=== PATIENT | female | born 1960 | race Caucasian/White ===

== ENCOUNTER 2020-02-14 20:28 | Emergency (ER) | payer OTHER ==
[2020-02-14] MEDS ORDERED: fentaNYL 100 MCG/2 ML SDV IVPUSH PRN (20:29)
[2020-02-14] MEDS ORDERED: Sodium Chloride 0.9% 1,000 ML IV ONE (20:46)
[2020-02-14] MEDS ORDERED: Acetaminophen/HYDROcodone 325-5 MG Tab ONE (21:00)
[2020-02-14 21:01] VITALS: BP 98/56; PULSE 62
--- NOTE | 2020-02-14 21:02 | EDM.PDOC ---
ED HPI GENERAL MEDICAL PROBLEM - General Chief Complaint: General Stated Complaint: R) shoulder pain Time Seen by Provider: 02/14/20 20:28 Source of Information: Reports: Patient, EMS History Limitations: Reports: No Limitations - History of Present Illness INITIAL COMMENTS - FREE TEXT/NARRATIVE: Deb is a 59 year old female who presents to ER with complaints of right upper arm/shoulder pain. States was leaving the house and slipped on the ice, tried to break her fall with an outstretched arm. Family was planning to bring patient to the ER but due to the pain, did not want to move her. Patient complained of pain at a 11/14 enroute to here. Patient relates she was seen in respiratory clinic on Sunday. Had a negative covid test. Was started on Amoxicillin. While at her appointment, blood pressure was high. Typically on Lisinopril/HCT 20/12.5. Was increased to 20/25. Has not checked her blood pressure at home. Per EMS, blood pressure 90- 110 systolic. Onset: Today, Sudden Duration: Minutes:, Constant Location: Reports: Upper Extremity, Right Quality: Reports: Sharp, Throbbing Severity: Severe Improves with: Reports: Rest Worsens with: Reports: Movement Context: Reports: Trauma Associated Symptoms: Reports: No Other Symptoms Right Upper Shoulder Pain Score (Numeric/FACES): 10 - Related Data Allergies Allergy/AdvReac Type Severity Reaction Status Date / Time No Known Allergies Allergy Verified 02/14/20 20:58 Home Meds: Home Meds Amoxicillin 1 tab PO BID 02/14/20 [History] Hydrochlorothiazide/Lisinopril [Lisinopril/HCTZ 20-12.5 MG] 1 tab PO DAILY 02/14/20 [History] Past Medical History - Past Health History Medical/Surgical History: Denies Medical/Surgical History Social & Family History - Tobacco Use Tobacco Use Status *Q: Current Every Day Tobacco User - Alcohol Use Alcohol Use History: Yes Date/Time of Last Drink Comment: States had 2 alcoholic beverages this evening ED ROS GENERAL - Review of Systems Review Of Systems: See Below Constitutional: Reports: No Symptoms HEENT: Denies: Ear Pain, Nosebleed, Throat Pain, Vertigo Respiratory: Denies: Shortness of Breath, Cough Cardiovascular: Denies: Chest Pain, Edema, Lightheadedness Endocrine: Denies: Fatigue GI/Abdominal: Denies: Abdominal Pain, Nausea, Vomiting : Reports: No Symptoms Musculoskeletal: Reports: Shoulder Pain, Arm Pain Skin: Reports: No Symptoms Neurological: Reports: No Symptoms Psychiatric: Reports: No Symptoms ED EXAM, GENERAL - Physical Exam Exam: See Below Exam Limited By: No Limitations General Appearance: Alert, WD/WN, Moderate Distress Ears: Normal External Exam, Normal TMs Nose: Normal Inspection, Normal Mucosa, No Blood Throat/Mouth: Normal Inspection, Normal Oropharynx Head: Normocephalic Neck: Normal Inspection, Supple, Non-Tender Respiratory/Chest: No Respiratory Distress, Lungs Clear, Normal Breath Sounds Cardiovascular: Regular Rate, Rhythm GI/Abdominal: Normal Bowel Sounds, Soft, Non-Tender Extremities: Other (deformity noted to upper humeral region/shoulder on the right. Very tender. pain with any movement of right shoulder. ) Neurological: Alert, Oriented Skin Exam: Warm, Dry Course - Vital Signs Last Recorded V/S: Last Vital Signs Temp 97.7 F 02/14/20 21:00 Pulse 62 02/14/20 21:00 Resp 18 02/14/20 21:00 BP 98/56 L 02/14/20 21:00 Pulse Ox 94 L 02/14/20 21:00 - Orders/Labs/Meds Orders: Active Orders 24 hr Category Date Time Status Humerus Rt [CR] Stat Exams 02/14/20 20:29 Taken Sodium Chloride 0.9% [Normal Saline] 1,000 ml Med 02/14/20 20:46 Active IV .BOLUS fentaNYL [Sublimaze] Med 02/14/20 20:29 Active 25 mcg IVPUSH Q6H PRN Medication Orders Fentanyl (Sublimaze) 25 mcg IVPUSH Q6H PRN PRN Reason: Pain Last Admin: 02/14/20 20:47 Dose: 25 mcg Documented by: [id number] Sodium Chloride (Normal Saline) 1,000 mls @ 999 mls/hr IV .BOLUS ONE Stop: 02/14/20 21:46 Last Admin: 02/14/20 20:52 Dose: 999 mls/hr Documented by: [id number] Meds: Medications Generic Name Dose Route Start Last Admin Trade Name Freq PRN Reason Stop Dose Admin Fentanyl 25 mcg 02/14/20 20:29 02/14/20 20:47 Sublimaze IVPUSH 25 mcg Q6H PRN Administration Pain Sodium Chloride 1,000 mls @ 999 mls/hr 02/14/20 20:46 02/14/20 20:52 Normal Saline IV 02/14/20 21:46 999 mls/hr .BOLUS ONE Administration Discontinued Medications Generic Name Dose Route Start Last Admin Trade Name Farhan PRN Reason Stop Dose Admin Hydrocodone Bitart/Acetaminophen 3 packet 02/14/20 21:14 02/14/20 21:18 Take Home: Acetaminophen/Hydrocod, 2 Tab Pack PO 02/14/20 21:15 3 packet ONETIME ONE Administration Diazepam 5 mg 02/14/20 20:43 02/14/20 20:47 Valium IVPUSH 02/14/20 20:44 5 mg ONETIME ONE Administration - Re-Assessments/Exams Free Text/Narrative Re-Assessment/Exam: 02/14/20 21:07 Xrays show displaced humeral head fracture. Contacted [facility] for orthopedic evaluation of xrays and treatment recommendations. Patient has been placed in a shoulder immobilizer after valium and fentanyl given. Did tolerate well. IV Normal saline infusing due to concerns of possible hypotension occurring with meds. [id number]-Received call back from Dr. Turner at [facility]. Recommended immobilizer and follow up with them later in the week as likely will need surgical treatment of this fracture. 02/14/20 21:14 Informed patient of physician recommendations. Will discharge home with immobilizer and pain meds. Departure - Departure Time of Disposition: 21:15 Disposition: Home, Self-Care 01 Condition: Fair Clinical Impression: Fracture of humeral head Qualifiers: Encounter type: initial encounter Fracture type: closed Laterality: right Qu alified Code(s): S42.291A - Other displaced fracture of upper end of right humerus, initial encounter for closed fracture - Discharge Information *PRESCRIPTION DRUG MONITORING PROGRAM REVIEWED*: No *COPY OF PRESCRIPTION DRUG MONITORING REPORT IN PATIENT DEANN: No Instructions: Humerus Fracture Treated With Immobilization, [id number] Referrals: Mariana Anthony PA [Primary Care Provider] - Forms: ED Department Discharge Additional Instructions: 1. Rest 2. Keep immobilizer on 3. Hydrocodone 1 tab every 4-6 hours for pain 4. Call [facility] on Sunday am. Advise that Dr. Turner was consulted on Sunday in our ER and plans to see you there in clinic. Number to call is [phone] 5. Call with any questions or concerns. Sepsis Event Note (ED) - Focused Exam Vital Signs: Vital Signs Temp Pulse Resp BP Pulse Ox 02/14/20 21:00 97.7 F 62 18 98/56 L 94 L - My Orders Last 24 Hours: My Active Orders 02/14/20 20:29 Humerus Rt [CR] Stat fentaNYL [Sublimaze] 25 mcg IVPUSH Q6H PRN 02/14/20 20:46 Sodium Chloride 0.9% [Normal Saline] 1,000 ml IV .BOLUS - Assessment/Plan Last 24 Hours: My Active Orders 02/14/20 20:29 Humerus Rt [CR] Stat fentaNYL [Sublimaze] 25 mcg IVPUSH Q6H PRN 02/14/20 20:46 Sodium Chloride 0.9% [Normal Saline] 1,000 ml IV .BOLUS
[2020-02-14] MEDS ORDERED: Take Home: Acetaminophen/HYDROcodone 325-5 MG, 2 Tab Pack PO ONE (21:14)
[2020-02-14] MEDS ORDERED: Acetaminophen/HYDROcodone 325-5 MG Tab PO ONE (21:19)
== END 2020-02-14 21:52 | disposition home or self-care (01) ==
LOC: CC.ED 20:28
DX: S42.291A Other displaced fracture of upper end of right humerus, initial encounter for closed fracture (principal); F17.200 Nicotine dependence, unspecified, uncomplicated; Z79.899 Other long term (current) drug therapy; W00.0XXA Fall on same level due to ice and snow, initial encounter; Y92.009 Unspecified place in unspecified non-institutional (private) residence as the place of occurrence of the external cause
CPT/HCPCS: 73060-RT; 96374; 96375; 99283-25; A9270-GY; J3010; J3360; J7030

== ENCOUNTER 2023-03-14 10:10 | Emergency (ER) | payer OTHER ==
[2023-03-14 10:29] VITALS: BP 157/97; PULSE 75
[2023-03-14] MEDS ORDERED: Ondansetron 4 MG/2 ML SDV IVPUSH PRN (10:41)
[2023-03-14] MEDS: HYDROmorphone 0.5 MG/0.5 ML Syringe IVPUSH ONE (10:46)
== END 2023-03-14 11:39 | disposition home or self-care (01) ==
LOC: CC.ED 10:10
DX: S52.502A Unspecified fracture of the lower end of left radius, initial encounter for closed fracture (principal); S52.602A Unspecified fracture of lower end of left ulna, initial encounter for closed fracture; I10 Essential (primary) hypertension; F17.210 Nicotine dependence, cigarettes, uncomplicated; W00.9XXA Unspecified fall due to ice and snow, initial encounter
CPT/HCPCS: 29125; 73110-LT; 96374; 99283-25; J1170